=== PATIENT | born 1990 | race Caucasian/White ===

== ENCOUNTER 2018-08-31 13:23 | Emergency (ER) | payer BC, SELFPAY ==
--- NOTE | 2018-08-31 13:55 | ED.GENADUL_ITS ---
Discharge Plan Disposition Patient Disposition: HOME Condition: Improving Discharge Details Chief Complaint: Laceration Clinical Impression: Laceration of left index finger Reason For Visit: finger laceration Primary Care Provider: Stacy,Local ED Provider: Russ Hunt Home Meds and New Rx's Prescriptions: New cephalexin 500 mg capsule 500 mg PO TID 3 Days Qty: 9 RF: 0 Discharge Instructions Instructions: Finger Laceration (ED) Additional Instructions: Leave dressing in place for 48 hours, then may perform daily soap and water cleanse, pat dry, replace dressing. Take antibiotics as prescribed for 3 days time. Return to develop a fever, discharge from the wound, or any other acute concerns Medical Decision Making 28-year-old female, tetanus up-to-date, lacerated her left index finger with a kitchen knife last night. Improved with pressure dressing. Now presents for evaluation. She is well-appearing and motor and sensory are intact. Wound cleansed and dressed. I will place her on 3 days of Keflex given the delay in seeking care. Discussed with her that the delay does not make the wound amenable to suture repair. HPI General Mode of arrival: ambulatory . Date/Time Provider Initiated Documentation: 08/31/18 13:30 . Limitations to Documentation: no limitations . Information obtained by: patient . History of Present Illness 28 year old U presents to the emergency department with the chief complaint of Left index finger laceration last night. Tetanus up to date, described as mild and moder ate, Quality is described as dull, and is localized to the left and upper extremity. Patient started experiencing this hour(s) and it has been constant. No relieving factors improve symptom(s), No exacerbating factors reported . Patient notes no other symptoms.. Patient did receive the following treatments prior to arrival, none Related Data Home Medications Medication Instructions Recorded Confirmed cephalexin 500 mg PO TID 3 Days #9 cap 08/31/18 Previous Rx's Medication Instructions Recorded cephalexin 500 mg PO TID 3 Days #9 cap 08/31/18 Review of Systems Review of Systems 6 systems reviewed and otherwise neg Exam Narrative Exam Narrative: GEN: awake, alert, oriented 3. Pleasant, well groomed, inter active. HEAD: Normocephalic, atraumatic ENT: Mucous membranes moist, oropharynx unremarkable, External ear exam unremarkable EYES: PERRL, EOMI EXT: Full ROM, no edema, no rash. L index finger with laceration to volar surface radial aspect. 2 pt discrimination intact at 1cm. Neuro: Grossly normal neurologic exam, conversant, interactive. Psych: Speech fluent, thoughts congruent, affect normal
[2018-08-31 14:10] VITALS: BP 126/83; PULSE 80; RESP 18; TEMP 210.2; TEMP 99; O2SAT 98
== END 2018-08-31 14:23 | disposition home or self-care (01) ==
PROVIDERS: Emergency Provider Emergency Medicine
DX: S61.211A Laceration without foreign body of left index finger without damage to nail, initial encounter (principal); W26.0XXA Contact with knife, initial encounter
CPT/HCPCS: 99283